=== PATIENT | male | born 1980 | race Caucasian/White ===

== ENCOUNTER 2022-05-03 22:11 | Emergency (ER) | payer BC ==
[~2022-05-03] VITALS: Ht 182.9 cm; Wt 106.8 kg
[2022-05-03 22:12] VITALS: TEMP 98.7
[2022-05-03] MEDS ORDERED: NORCO 325 MG-51 TAB PO (23:13)
[2022-05-03 23:27] VITALS: BP 142/99; PULSE 114
== END 2022-05-03 23:27 | disposition home or self-care (01) ==
LOC: COL.ER 22:11
DX: S82.841A Displaced bimalleolar fracture of right lower leg, initial encounter for closed fracture (principal); Z28.310 Unvaccinated for COVID-19; Z23 Encounter for immunization; V80.010A Animal-rider injured by fall from or being thrown from horse in noncollision accident, initial encounter; Y93.52 Activity, horseback riding
CPT/HCPCS: J1885; J2704